=== PATIENT | female | born 1945 | race African-American/Black ===

== ENCOUNTER → 2017-03-23 | Outpatient (CLI) | payer MEDICARE ==
[~2017-03-23] MED LIST: HYDR25TA9 PO; LOSA50TA6 PO; METF500T4 PO; MULT-245 PO; NAPR220T70 PO
[2017-03-23 09:22] LABS: BASO % 1 % (0-3); EOS % 6 % (0-3); HEMATOCRIT 36.9 % (36.0-47.0); HEMOGLOBIN 12.2 g/dL (12.0-15.5); LYMPH # 1.1 x10^3/uL (1.0-4.8); LYMPH % 29 % (24-48); MEAN CORPUSCULAR HEMOGLOBIN 30 pg (25-35); MEAN CORPUSCULAR HGB CONC 33 g/dL (31-37); MEAN CORPUSCULAR VOLUME 90 fL (79-100); MONO % 10 % (0-9); NEUT % 55 % (31-73); PLATELET COUNT 186 x10^3/uL (140-400); RED BLOOD COUNT 4.11 x10^6/uL (3.50-5.40); RED CELL DISTRIBUTION WIDTH 14.8 % (11.5-14.5); WHITE BLOOD COUNT 3.8 x10^3/uL (4.0-11.0)
[2017-03-23 09:27] LABS: INR 1.1 (0.8-1.1); PROTHROMBIN TIME PATIENT 13.5 SEC (11.7-14.0)
[2017-03-23 09:30] LABS: ALBUMIN 3.1 g/dL (3.4-5.0); CALCIUM 9.9 mg/dL (8.5-10.1); GFR 66.1; POTASSIUM 4.6 mmol/L (3.5-5.1)
[2017-03-23 10:37] LABS: BILIRUBIN,URINE NEGATIVE (NEG); GLUCOSE,URINE NEGATIVE (NEG); NITRITE,URINE NEGATIVE (NEG); PH,URINE 6.5; PROTEIN,URINE NEGATIVE (NEG-TRACE)
[2017-03-23 11:11] LABS: BACTERIA,URINE MODERATE /HPF (0-FEW); RBC,URINE OCC /HPF (0-2); SQUAMOUS EPITHELIAL CELL,UR MANY /LPF
--- NOTE | 2017-03-23 13:17 | EKG ---
[facility] [address] [place] [address] Test Date: 2017-03-23 Test Time: 12:43:29 Pat Name: SHRUTI PUENTES Department: Room: Gender: F Machine Stapler: : 1945 Requested By: MELVI PORTER Order Number: [id number] Reading MD: Margarita Arroyo Measurements Intervals [place] Rate: 74 P: 36 CO: 162 QRS: -4 QRSD: 88 T: 44 QT: 348 QTc: 387 Interpretive Statements SINUS RHYTHM ATRIAL PREMATURE COMPLEX(ES) LEFTWARD AXIS QRS(T) CONTOUR ABNORMALITY CONSIDER ANTEROSEPTAL MYOCARDIAL DAMAGE ABNORMAL ECG RI6.01 No previous ECG available for comparison Electronically Signed On 03-26-2017 12:36:53 CDT by Margarita Arroyo
--- NOTE | 2017-03-23 14:25 | RAD ---
Chest, 2 views, 03/23/2017: History: Preop evaluation for knee surgery Comparison is made to a study from 10/25/2012. The heart is at the upper limits of normal in size. The pulmonary vascularity is normal. No pulmonary infiltrates are seen. There is no evidence of pleural fluid. Moderate multilevel degenerative changes are present in the spine. There are also moderate degenerative changes at both shoulders. IMPRESSION: No acute cardiopulmonary abnormality is detected.
== END | disposition home or self-care (01) ==
LOC: SURGPAT 12:55
PROVIDERS: ATTEND Orthopaedic Surgery
DX: Z01.818 Encounter for other preprocedural examination (principal); I10 Essential (primary) hypertension; M17.0 Bilateral primary osteoarthritis of knee
CPT/HCPCS: 36415; 71020; 80048; 81001; 82040; 83036; 85027; 85610; 85651; 85730; 87086; 87641; 93005

== ENCOUNTER → 2017-04-13 | Outpatient (CLI) | payer MEDICARE ==
[~2017-04-13] MED LIST changes: +CELE200C PO
--- NOTE | 2017-04-13 10:33 | CARD ---
APPROVED REPORT EXAM: Two-dimensional and M-mode echocardiogram with Doppler and color Doppler. Other Information Quality : Average Rhythm : NSR INDICATION Peripheral Edema Pre-Op 2D DIMENSIONS RVDd3.2 (2.9-3.5cm)Left Atrium(2D)3.7 (1.6-4.0cm) IVSd0.9 (0.7-1.1cm)Aortic Root(2D)2.5 (2.0-3.7cm) LVDd5.6 (3.9-5.9cm)LVOT Diameter2.3 (1.8-2.4cm) PWd0.9 (0.7-1.1cm)LVDs3.4 (2.5-4.0cm) FS (%) 34.4 %SV106.5 ml LVEF(%)64.3 (>50%) Aortic Valve AoV Peak Luis Manuel.158.9cm/sAoV VTI31.2cm AO Peak GR.10.1mmHgLVOT Peak Luis Manuel.101.5cm/s LVOT VTI 22.34cmAO Mean GR.6mmHg KATHRYN (VMAX)2.89ew6NXH (VTI)2.86cm2 Mitral Valve MV E Nqocpzav74.2cm/sMV DECEL GRGB713kh MV A Oxyhzhwo78.9cm/sMV E Mean Gr.2mmHg MV LRS81emJ/A Ratio0.6 MV A Iflnbnwu732rdZTW (PHT)2.44cm2 TDI E/Lateral E'8.3E/Medial E'7.0 Pulmonary Valve PV Peak Eiqwetbp246.2cm/sPV Peak Grad.6mmHg Tricuspid Valve TR P. Pwowppqu854hp/sRAP ULGYOQTE7kmDg TR Peak Gr.39prWiZFCT28ysAh LEFT VENTRICLE The left ventricle is normal size. There is normal left ventricular wall thickness. Left ventricle sy stolic function is normal. The Ejection Fraction is 60-65%. There is grossly normal LV segmental wall motion. Tissue Doppler imaging reveals mild left ventricular diastolic dysfunction. There is no vent ricular septal defect visualized. RIGHT VENTRICLE The right ventricle is normal size. The right ventricular systolic function is normal. ATRIA The left atrium size is normal. The right atrium size is normal. The interatrial septum is intact wit h no evidence for an atrial septal defect or patent foramen ovale as noted on 2-D or Doppler imaging. AORTIC VALVE The aortic valve is grossly normal. The aortic valve is trileaflet. Doppler and Color Flow revealed n o significant aortic regurgitation. There is no significant aortic valvular stenosis. MITRAL VALVE The mitral valve is normal in structure and function. There is no evidence of mitral valve prolapse. There is no mitral valve stenosis. Doppler and Color Flow revealed trace to mild mitral regurgitation . TRICUSPID VALVE The tricuspid valve is normal in structure and function. Doppler and Color Flow revealed trace to mil d tricuspid regurgitation. The PA pressure was estimated at 31 mmHg. There is no tricuspid valve sten osis. PULMONIC VALVE The pulmonic valve is not well visualized. Doppler and Color Flow revealed no pulmonic valvular regur gitation. There is no pulmonic valvular stenosis. GREAT VESSELS The aortic root is normal in size. The ascending aorta is normal in size. The IVC is normal in size a nd collapses >50% with inspiration. PERICARDIAL EFFUSION There is no evidence of significant pericardial effusion. Critical Notification Critical Value: No <Conclusion> Left ventricle systolic function is normal. The Ejection Fraction is 60-65%. There is grossly normal LV segmental wall motion.
== END | disposition home or self-care (01) ==
LOC: ECHO 08:55
PROVIDERS: ATTEND Internal Medicine Cardiovascular Disease
DX: Z01.818 Encounter for other preprocedural examination (principal); I08.1 Rheumatic disorders of both mitral and tricuspid valves; R60.9 Edema, unspecified
CPT/HCPCS: 93306

== ENCOUNTER 2017-04-14 11:13 | Inpatient (IN) | payer MEDICARE ==
--- NOTE | 2017-04-13 16:13 | PDOC1 ---
History and Physical Date of Admission Date of Admission DATE: 04/14/17 Identification/Chief Complaint Chief Complaint left knee osteoarthritis pain Problems: Source Source: Chart review History of Present Illness History of Present Illness Verito is a 71 year old female who has bilateral knee pain. She lives with her . Her dull knee pain started 3 years ago and has been worsening recently. She rates the pain as an 8/10. She has been using a cane in her left hand recently, as she states it helps her walk. She states that her left knee is more painful than her right knee. She has difficulties with activities of daily living. She has tried cortisone injections into the knee in 2016 without relief. She has been taking Aleve for symptoms without significant relief. Past Medical History Cardiovascular: HTN Endocrine: Diabetes Past Surgical History Past Surgical History rotator cuff repair - 2013 Past Surgical History: Total hip replacement (10/2012) Family History Family History: No Significant Social History Smoke: No ALCOHOL: none Drugs: None Current Medications Current Medications Current Medications Morphine Sulfate 5 mg/Ketorolac Tromethamine 30 mg/Ropivacaine 60 ml/ Epinephrine HCl 0.5 mg/Sodium Chloride 100 ml @ 100 mls/hr 1X PERIOP ONCE INT ART ; Start 04/14/17 at 06:00; Stop 04/14/17 at 06:59 Bacitracin 82936 unit/Sodium Chloride 1,000 ml @ 1,000 mls/hr 1X PERIOP ONCE IRR ; Start 04/14/17 at 06:00; Stop 04/14/17 at 06:59 Active Scripts Active Reported Multi Vitamin Daily (Multivitamin) 1 Each Tablet 1 Each PO DAILY Losartan Potassium 50 Mg Tablet 50 Mg PO DAILY Metformin Hcl 500 Mg Tablet 500 Mg PO BIDWMEALS Aleve (Naproxen Sodium) 220 Mg Tablet 440 Mg PO BID Hydrochlorothiazide Tablet (Hydrochlorothiazide) 25 Mg Tablet 25 Mg PO DAILY Allergies Allergies: Coded Allergies: Tetanus Vaccines and Toxoid (Verified Adverse Reaction, Intermediate, Rash , 03/23/17) AND SWELLING aspirin (Verified Adverse Reaction, Intermediate, 03/23/17) NOSEBLEEDS Physical Exam General: Alert, Oriented X3, Cooperative, No acute distress HEENT: Atraumatic, EOMI Lungs: Normal air movement Heart: RRR Abdomen: Soft Extremities: No clubbing, No cyanosis, Normal pulses, Other (LEFT KNEE: antalgic gait. There is valgus alignment. No masses. No effusion. Tenderness on the medial and lateral joint lines. Range of motion is 10-80 degrees. There is crepitus with range of motion, and pain at the extremes of motion. The knee is stable to varus and valgus stress without subluxation or laxity. Muscle strength is normal (5/5) for quadriceps and hamstrings, and muscle tone is normal. The skin is normal with no scars, rashes, lesions or ulcers. Light touch sensation is intact. Trace edema and no varicosities. Dorsalis pedis pulse is intact and capillary refill is normal RIGHT KNEE: antalgic gait. There is valgus alignment. No masses. No detectable effusion. Tenderness on the medial and lateral joint lines. Range of motion is 0-115 degrees. There is crepitus with range of motion, and pain at the extremes of motion. The knee is stable to varus and valgus stress without subluxation or laxity. Muscle strength is normal (5/5) for quadriceps and hamstrings, and muscle tone is normal. The skin is normal with no scars, rashes, lesions or ulcers. Light touch sensation is intact. Trace edema and no varicosities. Dorsalis pedis pulse is intact and capillary refill is normal. ) Skin: No rashes, No breakdown, No significant lesion Neuro: Normal speech, Sensation intact Psych/Mental Status: Mental status NL, Mood NL Images Images IMAGING REPORT 45 PA weightbearing view of both knees, lateral, and patella view of each knee. Clinical information: Chronic knee pain Comparison: none Findings Bones: No fracture or dislocation is present. Joints: Both knees show bone on bone changes laterally of each knee, most consistent with osteoarthritis. Large osteophytes are present in all three compartments. Both knees have valgus malalignment. Soft tissue: Normal. Impression: Severe osteoarthritis of both knees Dictated and Signed Using Voice Recognition Software Davidson Reaves MD VTE Prophylaxis Ordered VTE Prophylaxis Devices: Yes VTE Pharmacological Prophylaxi: Yes Assessment/Plan Assessment/Plan Bilateral knee osteoarthritis pain, left worse than right. The patient, Dr. Reaves, and her daughter discussed options for treatment. She is 71 years old, and her knee arthritis limits her activity. She otherwise has reasonable health, with type 2 diabetes and hypertension. She had a right total hip arthroplasty with Dr. Rock on 11/09/2012 which is still doing well. She is barely able to walk down has decreased range of motion and malalignment of the knee. She has tried nonoperative treatment. At age 71 I recommend consideration of total knee arthroplasty. She has some risks here because of her underlying diabetes, as well as her current poor mobility. There were be some risk she would need inpatient rehabilitation after total knee arthroplasty. Overall I think the benefits outweigh the risks and she would like to proceed with a left total knee arthroplasty. We can do a cortisone injection into the right knee intraoperatively for symptom relief as she recovers postoperatively. I did not take a long-leg films today due to her difficulties with mobility. I will have her take the preoperative rehabilitation class. She and her daughter agree with this plan. We discussed the potential risks of infection, neurovascular injury, bleeding, blood clots, need for revision surgery, or other potential surgical or anesthetic complications. We will request medical clearance from her primary care provider Delmy Brito. SYED FLOWERS Apr 13, 2017 16:13
[2017-04-14] VITALS (7 sets, daily range): BP systolic 110–126; BP diastolic 64–70
[~2017-04-14] VITALS: Ht 165.1 cm; Wt 123.4 kg
[~2017-04-14 11:13] MED LIST changes: +BACITRACIN 50,000 UNIT in IV NORMAL SALINE 1000ML BAG 1,000 ML IRR ONE; -CELE200C PO; +CELECOXIB 200 MG CAPSULE. PO PRN; +DEXAMETHASONE SOD PHOS 20 MG/5 ML VIAL. ONE; +HYDROcodone/APAP 7.5/325MG 1 TAB TABLET PO PRN; +HYDROmorphone 2 MG/ML VIAL IV PRN; +LIDOCAINE 1% 1 ML SYRINGE. ID PRN; +LIDOCAINE 2% PF Vial for OR 5 ML VIAL. ONE; +MEPERIDINE PF 25 MG/ML VIAL. IV PRN; +MIDAZOLAM HCL/PF 2 MG/2 ML VIAL. IV PRN; +MORPHINE SULFATE 4 MG/ML DISP.SYRIN. IV PRN; +MORPHINE SULFATE 5 MG, KETOROLAC TROMETHAMINE 30 MG, ROPIVacaine 0.5% PF 60 ML, EPINEPH... INT ART ONE; +ONDANSETRON PF 4 MG/2 ML VIAL. ONE; +PROCHLORPERAZINE 10 MG/2 ML VIAL. IV PRN; +PROPOFOL 20 ML IV ONE; +TRANEXAMIC ACID 1,000 MG in IV NS 50ML -- 1ST BAG INJ ONE; +TRANEXAMIC ACID 1,000 MG in IV NS 50ML -- 2ND BAG INJ ONE; +diphenhydrAMINE 50 MG/ML VIAL IV PRN; +fentaNYL PF VIAL 100 MCG/2 ML VIAL IV PRN; +fentaNYL PF VIAL 100 MCG/2 ML VIAL ONE
[2017-04-14] MEDS ORDERED: CELE200C PO (11:38)
[2017-04-14] MEDS: IV RINGERS,LACTATED 1000ML 1,000 ML IV SCH ×2 (11:59→12:07)
[2017-04-14] MEDS ORDERED: ceFAZolin 2GM PREMIX 2 GM/50 ML BAG IV ONE (12:00)
[2017-04-14] MEDS ORDERED: VANCOMYCIN 1 GM VIAL. ONE ×2 (12:39→13:18)
[2017-04-14] MEDS ORDERED: TOBRAMYCIN POWDER 1.2 GM VIAL. ONE ×2 (12:39→13:18)
[2017-04-14] MEDS ORDERED: MIDAZOLAM HCL/PF 2 MG/2 ML VIAL. ONE (13:04)
[2017-04-14] MEDS ORDERED: ROCURONIUM 50 MG/5 ML VIAL. ONE (13:04)
[2017-04-14] MEDS ORDERED: methylPREDNISolone ACETATE 80 MG/ML VIAL. ONE (13:11)
[2017-04-14] MEDS ORDERED: BUPIVACAINE MPF 0.25% 30 ML VIAL. ONE (13:11)
[2017-04-14] MEDS ORDERED: PHENYLEPHRINE 10 MG/ML VIAL. ONE (13:15)
[2017-04-14] MEDS ORDERED: ePHEDrine PF IN SALINE 50 MG/5 ML DISP.SYRIN IV ONE (13:33)
[2017-04-14] MEDS ORDERED: NEOSTIGMINE METHYLSULFATE 5 MG/5 ML SYRINGE. ONE (13:52)
[2017-04-14] MEDS ORDERED: GLYCOPYRROLATE 1 MG/5 ML VIAL. ONE (13:52)
[2017-04-14] MEDS ORDERED: DESFLURANE 61 TO 120 MINUTES IH ONE (14:32)
[2017-04-14] MEDS ORDERED: fentaNYL PF VIAL 100 MCG/2 ML VIAL ONE (15:10)
--- NOTE | 2017-04-14 15:22 | PDOC4 ---
Operative Note Operative Note Date of Procedure: April 14, 2017 Pre-Op Diagnosis: Osteoarthritis left knee and right knee Post-Op Diagnosis: Osteoarthritis left knee and right knee Procedure: left total knee arthroplasty and right knee cortisone injection Surgeon: Melvi Reaves MD Lead Ramp Service Man: Keyla Rodriguez PA-C Anesthesia: General EBL: 100 mL Specimens Obtained: left knee bone and soft tissue Complications: none Implant Company: [employer] Drains: Hemovac plus pain catheter Tourniquet time: 67 Minutes Tourniquet Pressure: 350 mm Hg Indications for Procedure: Arthritis pain unrelieved by nonoperative management. Findings: Severe osteoarthritis with bone on bone contact laterally Implants used: Size 5 left bicruciate stabilized Journey II BCS cobalt chrome femoral component, size 6 left Journey nonporous tibial baseplate, size 5 -6 9 mm left Journey II BCS XLPE articular insert, 41 mm oval Esperanza II resurfacing patellar component Procedure in Detail: The patient was identified in the preoperative holding area, and the correct left extremity was marked by me. The patient was taken to the operating room where the patient was anesthetized by the Department of Anesthesia. Preoperative antibiotics were given intravenously. Tranexamic acid 1 g was given intravenously for intraoperative hemostasis. A "time-out" procedure was performed. The left knee was prepared for injection with chlorhexidine, and then the left knee was injected with 80 mg of DepoMedrol and 1 mL of 0.25% bupivacaine, using sterile technique by my press assistant. A Band-Aid was placed. The patient was positioned supine on the operative table with a tourniquet on the upper left thigh. The left lower extremity was thoroughly prepped and draped in sterile fashion. An impervious stockinet and adhesive drape were used such that the skin was entirely covered. An Almanzar leg snyder was used. The operating team wore personal exhaust-ventilated hoods. The tourniquet was inflated to 350 mm Hg. A midline skin incision was made with a scalpel using the patella and tibial tubercle as landmarks. Electrocautery was used for hemostasis. My press assistant used rake retractors. A medial parapatellar arthrotomy incision was used with extension into the distal quadriceps tendon. The patella was retracted laterally and Hohmann retractors were now used by my press assistant. Excess synovium, the menisci, and the cruciate ligaments were resected sharply. The patella was assessed and excess synovium and osteophytes around the patellar articulation were removed. The patella was measured with a caliper, cut freehand with a saw using caliper measurements, sized, and then drilled for an oval three-pegged patella component. Periarticular injection was used in the suprapatellar pouch and distal quadriceps muscle. Whitesides's line was assessed on the femur. An intra-medullary 5 degree cutting guide was pinned to the femur, and a distal femoral cut was made with an oscillating saw. An additional 4 mm resection was used due to the deep femoral sulcus, and deficient femoral condyle.My press assistant held Hohmann retractors and an [place] retractor to protect the medial and lateral collateral ligaments, the patellar tendon, the skin and the other soft tissues. An anterior referencing guide was applied with external rotation of 4 to match Whitesides line. A 5-in-1 Journey II cutting guide was then applied and pinned to the femur. The posterior, anterior, and all chamfer cuts were made with the oscillating saw. An extramedullary guide was pinned to the tibia and rotational alignment and the planned resection thickness assessed. An external alignment marya was used to verify the planned cut in the varus-valgus plane and regarding posterior slope referencing the tibial tubercle, the tibial shaft, the ankle joint, and the second metatarsal. The upper tibia was cut made with an oscillating saw. My press assistant held Hohmann retractors and a posterior cruciate ligament retractor to protect the medial and lateral collateral ligaments, the patellar tendon, the skin, the peroneal nerve and the other soft tissues. The upper tibia was sized with a trial baseplate. The posterior compartment was cleared of osteophytes and loose bodies, and posterior capsule released. Elisha-articular injection was used in the posterior compartment. The box cut for a posterior stabilized component was made. A preliminary reduction was performed with a trial femur, trial tibial baseplate and trial polyethylene. Soft-tissue balancing was now performed, and extension and rotation of the alignments was checked using a guide marya in the tibial trial and a guide pin in the femur. A lateral tibiofemoral release was performed with a piecrust technique using an 11 blade scalpel in the lateral soft tissues including the IT band. The stability was assessed using different thicknesses of tibial articular surface to find satisfactory stability and good range of motion. The rotation of the tibial component was marked on the upper tibia. Final trial reduction was now performed verifying patella tracking and tibiofemoral stability and alignment. The tibia preparation was completed with a drill, saw, and fin punch at the previously noted rotation. The final implants were verified and opened. Outer gloves were changed by the operating team. The bone cuts were washed thoroughly with the Lumenergi InterPulse device and dried. Two packages of Rally HV bone cement were mixed in powdered form with 1 gm of Vancomycin and 1.2 g tobramycin, then vacuum-mixed with the monomer, and placed into a cement gun. The cut surfaces of the bone were thoroughly dried with Elise-tip suction and with laparotomy sponges for cement interdigitation. The final components were cemented into place. The knee was kept at full extension while the cement hardened, and excess cement was removed. Tranexamic acid 1 g was redosed intravenously for additional intraoperative hemostasis. A final periarticular injection was used for pain relief. The tourniquet was released, and electrocautery was used for hemostasis. A final check of [id number] and stability was made, and the polyethylene implant final size was chosen. The polyethylene implant was secured to the tibial baseplate, and the knee was reduced a final time. Thorough irrigation was used. Hemovac and pain catheter were used.The arthrotomy was closed with interrupted [id number] #1 PDS suture. The arthrotomy incision was then run with #1 STRATAFIX Symmetric PDS Plus Knotless suture. The subcutaneous tissues were closed with #2-0 Vicryl by my press assistant. The skin was reapproximated with STRATAFIX Spiral MONOCRYL Plus Knotless #3-0 suture by my press assistant. The skin incision was then covered and reinforced with Dermabond Prineo mesh skin closure dressing. A bulky sterile gauze dressing was applied. Needle and sponge counts were correct. MELVI REAVES MD Apr 14, 2017 15:22
[2017-04-14] MEDS ORDERED: diphenhydrAMINE 50 MG/ML VIAL IV PRN (15:45)
[2017-04-14] MEDS ORDERED: traMADol 50 MG TABLET PO PRN ×2 (15:45)
[2017-04-14] MEDS ORDERED: ZOLPIDEM 5 MG TABLET. PO PRN (15:45)
[2017-04-14] MEDS ORDERED: fentaNYL PF VIAL 100 MCG/2 ML VIAL IV PRN ×2 (15:45)
[2017-04-14] MEDS ORDERED: PROCHLORPERAZINE 5 MG TABLET. PO PRN (15:45)
[2017-04-14] MEDS ORDERED: METOCLOPRAMIDE HCL 10 MG/2 ML VIAL. IV PRN (15:45)
[2017-04-14] MEDS ORDERED: 0.9 % SODIUM CHLORIDE 10 ML DISP.SYRIN. IV PRN (15:45)
[2017-04-14] MEDS ORDERED: PROCHLORPERAZINE 10 MG/2 ML VIAL. IV PRN (15:45)
[2017-04-14] MEDS ORDERED: MORPHINE SULFATE 10 MG/ML VIAL. IV PRN (15:45)
[2017-04-14] MEDS ORDERED: oxyCODONE/APAP 7.5/325 1 TAB TABLET PO PRN (15:45)
[2017-04-14] MEDS ORDERED: ACETAMINOPHEN 325 MG TABLET. PO PRN (15:45)
[2017-04-14] MEDS ORDERED: MORPHINE SULFATE 4 MG/ML DISP.SYRIN. IV PRN ×2 (15:45)
[2017-04-14] MEDS ORDERED: MORPHINE SULFATE 2 MG/ML DISP.SYRIN. IV PRN (15:45)
[2017-04-14] MEDS ORDERED: CALCIUM CARBONATE 500 MG TAB.CHEW PO PRN (15:45)
[2017-04-14] MEDS ORDERED: DEXTROSE 50% 25 GM / 50ML DISP.SYRIN. IV PRN (15:45)
--- NOTE | 2017-04-14 16:08 | RAD ---
Indication: Postop knee. Time of exam 1552 hours. 2 views demonstrate postop changes of total knee arthroplasty. Prosthetic elements are in good position. No fracture or loosening is seen. Overlying surgical drain noted. Impression: Satisfactory postop appearance from knee arthroplasty.
[2017-04-14] MEDS ORDERED: WARFARIN 7.5 MG TABLET. PO ONE (18:00)
[2017-04-14] MEDS: FERROUS SULFATE 325 MG TABLET. PO SCH (18:56)
[2017-04-14] MEDS: metFORMIN 500 MG TABLET PO SCH (18:56)
[2017-04-14] MEDS: CELECOXIB 200 MG CAPSULE. PO SCH (21:19)
[2017-04-14] MEDS: IV DEXTROSE 5 %-0.45 % NACL 1,000 ML IV SCH (22:31)
[2017-04-15 03:40] VITALS: BP 109/61
[2017-04-15] MEDS: IV DEXTROSE 5 %-0.45 % NACL 1,000 ML IV SCH ×3 (04:00→21:01)
[2017-04-15 05:17] LABS: INR 1.2 (0.8-1.1); PROTHROMBIN TIME PATIENT 14.8 SEC (11.7-14.0)
[2017-04-15] MEDS: oxyCODONE/APAP 5/325 1 TAB TABLET PO PRN (05:51)
[2017-04-15] MEDS ORDERED: MAGNESIUM HYDROXIDE 2,400 MG/30 ML ORAL.SUSP. PO PRN (06:00)
[2017-04-15 07:11] VITALS: BP 113/57
[2017-04-15] MEDS: FERROUS SULFATE 325 MG TABLET. PO SCH ×2 (08:25→17:06)
[2017-04-15] MEDS: metFORMIN 500 MG TABLET PO SCH ×2 (08:26→17:06)
[2017-04-15] MEDS: CELECOXIB 200 MG CAPSULE. PO SCH ×2 (08:26→21:10)
[2017-04-15] MEDS: hydroCHLOROthiazide 25 MG TABLET PO SCH ×2 (08:26→09:00)
[2017-04-15] MEDS: SENNOSIDES/DOCUSATE 8.6/50MG TABLET. PO SCH (08:26)
[2017-04-15] MEDS: MULTIVITAMIN with MINERAL TABLET. PO SCH (08:28)
[2017-04-15 08:30] VITALS: BP 93/56
[2017-04-15] MEDS: LOSARTAN POTASSIUM 50 MG TABLET. PO SCH (09:00)
[2017-04-15] MEDS: HYDROcodone/APAP 7.5/325MG 1 TAB TABLET PO PRN ×4 (09:27→21:11)
--- NOTE | 2017-04-15 10:17 | PDOC ---
PROGRESS NOTES Subjective Subjective No complaints Objective Vital Signs Vital Signs Date Time Temp Pulse Resp B/P (MAP) Pulse Ox O2 Delivery O2 Flow Rate FiO2 04/15/17 09:27 16 Room Air 04/15/17 08:30 79 93/56 (68) 04/15/17 07:11 98.2 93 98.2 04/14/17 23:10 2.0 Physical Exam Dressing dry. Pain catheter and Hemovac in place. Good dorsiflexion and plantarflexion of the foot with no evidence of neurovascular injury or DVT. Calves are soft and non-tender. Negative Homans. Peripheral pulses and light touch sensation intact. Labs Laboratory Tests Test 04/14/17 11:15 04/14/17 11:51 04/14/17 16:51 04/14/17 21:14 Activated Partial Thromboplast Time 54 SEC (24-38) Glucose (Fingerstick) 84 mg/dL (70-99) 144 mg/dL (70-99) 191 mg/dL (70-99) Test 04/15/17 03:35 04/15/17 03:55 04/15/17 05:43 Hemoglobin 10.6 g/dL (12.0-15.5) Prothrombin Time 14.8 SEC (11.7-14.0) Prothromb Time International Ratio 1.2 (0.8-1.1) Glucose (Fingerstick) 156 mg/dL (70-99) Laboratory Tests Test 04/14/17 11:15 04/14/17 11:51 04/14/17 16:51 04/14/17 21:14 Activated Partial Thromboplast Time 54 SEC (24-38) Glucose (Fingerstick) 84 mg/dL (70-99) 144 mg/dL (70-99) 191 mg/dL (70-99) Test 04/15/17 03:35 04/15/17 03:55 04/15/17 05:43 Hemoglobin 10.6 g/dL (12.0-15.5) Prothrombin Time 14.8 SEC (11.7-14.0) Prothromb Time International Ratio 1.2 (0.8-1.1) Glucose (Fingerstick) 156 mg/dL (70-99) Imaging Postoperative x-rays reviewed by me, showing satisfactory total knee replacement , with no apparent complications. Assessment Assessment POD #1 TKA Problems: Plan Plan of Care Continue POC including DVT prophylaxis and physical therapy MELVI PORTER MD Apr 15, 2017 10:17
[2017-04-15 12:11] VITALS: BP 103/63
[2017-04-15] MEDS ORDERED: BISACODYL 10 MG SUPP.RECT. PR PRN (16:00)
[2017-04-15] MEDS ORDERED: WARFARIN 5 MG TABLET. PO ONE (16:00)
[2017-04-15 18:02] VITALS: BP 110/69
[2017-04-16 06:37] VITALS: BP 147/76
[2017-04-16] MEDS: oxyCODONE/APAP 5/325 1 TAB TABLET PO PRN (06:39)
[2017-04-16] MEDS: metFORMIN 500 MG TABLET PO SCH ×2 (07:59→17:02)
[2017-04-16] MEDS: hydroCHLOROthiazide 25 MG TABLET PO SCH (07:59)
[2017-04-16] MEDS: MULTIVITAMIN with MINERAL TABLET. PO SCH (07:59)
[2017-04-16] MEDS: FERROUS SULFATE 325 MG TABLET. PO SCH ×2 (07:59→17:02)
[2017-04-16] MEDS: SENNOSIDES/DOCUSATE 8.6/50MG TABLET. PO SCH (08:00)
[2017-04-16] MEDS: CELECOXIB 200 MG CAPSULE. PO SCH ×2 (08:00→20:58)
[2017-04-16 08:01] VITALS: BP 147/80
[2017-04-16] MEDS: LOSARTAN POTASSIUM 50 MG TABLET. PO SCH (08:01)
[2017-04-16] MEDS: HYDROcodone/APAP 7.5/325MG 1 TAB TABLET PO PRN ×2 (08:38→12:41)
[2017-04-16 09:11] LABS: INR 1.2 (0.8-1.1); PROTHROMBIN TIME PATIENT 14.3 SEC (11.7-14.0)
[2017-04-16 09:51] LABS: HEMATOCRIT 29.3 % (36.0-47.0); HEMOGLOBIN 9.6 g/dL (12.0-15.5)
--- NOTE | 2017-04-16 12:40 | PDOC ---
PROGRESS NOTES Subjective Subjective Doing well. Only reports mild pain increase from yesterday. Objective Vital Signs Vital Signs Date Time Temp Pulse Resp B/P (MAP) Pulse Ox O2 Delivery O2 Flow Rate FiO2 04/16/17 09:30 20 04/16/17 08:01 69 147/80 (102) Room Air 04/16/17 06:37 98.8 95 98.8 04/14/17 23:10 2.0 Physical Exam Expected swelling. Pain catheter and drain have been removed. Incision with spotty drainage only from drain sites. Prineo intact and dry. Calf soft and nontender. Negative Homans sign. Good AROM ankle. Peripheral pulses and light touch sensation intact. Labs Laboratory Tests Test 04/14/17 16:51 04/14/17 21:14 04/15/17 03:35 04/15/17 03:55 Glucose (Fingerstick) 144 mg/dL (70-99) 191 mg/dL (70-99) Hemoglobin 10.6 g/dL (12.0-15.5) Prothrombin Time 14.8 SEC (11.7-14.0) Prothromb Time International Ratio 1.2 (0.8-1.1) Test 04/15/17 05:43 04/15/17 11:29 04/15/17 16:34 04/15/17 21:06 Glucose (Fingerstick) 156 mg/dL (70-99) 106 mg/dL (70-99) 102 mg/dL (70-99) 100 mg/dL (70-99) Test 04/16/17 07:50 Hemoglobin 9.6 g/dL (12.0-15.5) Hematocrit 29.3 % (36.0-47.0) Mean Corpuscular Hemoglobin Concent 33 g/dL (31-37) Prothrombin Time 14.3 SEC (11.7-14.0) Prothromb Time International Ratio 1.2 (0.8-1.1) Laboratory Tests Test 04/15/17 16:34 04/15/17 21:06 04/16/17 07:50 Glucose (Fingerstick) 102 mg/dL (70-99) 100 mg/dL (70-99) Hemoglobin 9.6 g/dL (12.0-15.5) Hematocrit 29.3 % (36.0-47.0) Mean Corpuscular Hemoglobin Concent 33 g/dL (31-37) Prothrombin Time 14.3 SEC (11.7-14.0) Prothromb Time International Ratio 1.2 (0.8-1.1) Assessment Assessment POD 2 TKA Problems: Plan Plan of Care Continue DVT prophylaxis and physical therapy. Planned discharge tomorrow to home with home health. Office F/U in 10-14 days. SYED FLOWERS Apr 16, 2017 12:39
[2017-04-16] MEDS ORDERED: WARFARIN 6 MG TABLET. PO ONE (16:00)
[2017-04-16] MEDS: HYDROcodone/APAP 10/325 1 TAB TABLET PO PRN (17:04)
[2017-04-16 18:00] VITALS: BP 106/70
[2017-04-16] MEDS: IV DEXTROSE 5 %-0.45 % NACL 1,000 ML IV SCH (18:45)
[2017-04-17] MEDS: HYDROcodone/APAP 10/325 1 TAB TABLET PO PRN (04:59)
[2017-04-17 06:21] LABS: INR 1.3 (0.8-1.1); PROTHROMBIN TIME PATIENT 15.7 SEC (11.7-14.0)
[2017-04-17 06:55] VITALS: BP 102/71
[2017-04-17 08:08] LABS: HEMATOCRIT 29.9 % (36.0-47.0); HEMOGLOBIN 9.6 g/dL (12.0-15.5)
[2017-04-17] MEDS: oxyCODONE/APAP 5/325 1 TAB TABLET PO PRN ×2 (08:11→12:27)
[2017-04-17] MEDS: MULTIVITAMIN with MINERAL TABLET. PO SCH (08:11)
[2017-04-17] MEDS: SENNOSIDES/DOCUSATE 8.6/50MG TABLET. PO SCH (08:11)
[2017-04-17] MEDS: metFORMIN 500 MG TABLET PO SCH (08:11)
[2017-04-17] MEDS: FERROUS SULFATE 325 MG TABLET. PO SCH (08:12)
[2017-04-17] MEDS: CELECOXIB 200 MG CAPSULE. PO SCH (08:12)
[2017-04-17] MEDS: hydroCHLOROthiazide 25 MG TABLET PO SCH (08:16)
[2017-04-17] MEDS: LOSARTAN POTASSIUM 50 MG TABLET. PO SCH (08:16)
[2017-04-17 12:55] VITALS: BP 132/80
[2017-04-17] MEDS ORDERED: WARFARIN 7.5 MG TABLET. PO ONE (13:00)
--- NOTE | 2017-04-17 13:25 | PDOC ---
PROGRESS NOTES Subjective Subjective Doing well. Planning for discharge later today after PT. Objective Vital Signs Vital Signs Date Time Temp Pulse Resp B/P (MAP) Pulse Ox O2 Delivery O2 Flow Rate FiO2 04/17/17 12:27 Room Air 04/17/17 08:16 87 130/79 04/17/17 06:55 98.4 18 94 98.4 04/14/17 23:10 2.0 Physical Exam Expected swelling. Prineo dressing intact and dry. Calf soft and nontender. Negative Homans. Good AROM ankle. Peripheral pulses and light touch sensation intact. Labs Laboratory Tests Test 04/15/17 16:34 04/15/17 21:06 04/16/17 06:02 04/16/17 07:50 Glucose (Fingerstick) 102 mg/dL (70-99) 100 mg/dL (70-99) 84 mg/dL (70-99) Hemoglobin 9.6 g/dL (12.0-15.5) Hematocrit 29.3 % (36.0-47.0) Mean Corpuscular Hemoglobin Concent 33 g/dL (31-37) Prothrombin Time 14.3 SEC (11.7-14.0) Prothromb Time International Ratio 1.2 (0.8-1.1) Test 04/16/17 11:06 04/16/17 16:38 04/16/17 21:06 04/16/17 21:49 Glucose (Fingerstick) 69 mg/dL (70-99) 90 mg/dL (70-99) 69 mg/dL (70-99) 138 mg/dL (70-99) Test 04/17/17 05:54 04/17/17 06:41 04/17/17 11:28 Hemoglobin 9.6 g/dL (12.0-15.5) Hematocrit 29.9 % (36.0-47.0) Mean Corpuscular Hemoglobin Concent 32 g/dL (31-37) Prothrombin Time 15.7 SEC (11.7-14.0) Prothromb Time International Ratio 1.3 (0.8-1.1) Glucose (Fingerstick) 96 mg/dL (70-99) 79 mg/dL (70-99) Laboratory Tests Test 04/16/17 16:38 04/16/17 21:06 04/16/17 21:49 04/17/17 05:54 Glucose (Fingerstick) 90 mg/dL (70-99) 69 mg/dL (70-99) 138 mg/dL (70-99) Hemoglobin 9.6 g/dL (12.0-15.5) Hematocrit 29.9 % (36.0-47.0) Mean Corpuscular Hemoglobin Concent 32 g/dL (31-37) Prothrombin Time 15.7 SEC (11.7-14.0) Prothromb Time International Ratio 1.3 (0.8-1.1) Test 04/17/17 06:41 04/17/17 11:28 Glucose (Fingerstick) 96 mg/dL (70-99) 79 mg/dL (70-99) Assessment Assessment POD 3 TKA Problems: Plan Plan of Care Discharge later today, to home with home health. Continue DVT prophylaxis and physical therapy. F/U 10-14 days. SYED FLOWERS Apr 17, 2017 13:25
--- NOTE | 2017-04-17 13:27 | PDOC3 ---
Discharge Summary Visit Information Date of Admission: Apr 14, 2017 Date of Discharge: Apr 17, 2017 Admitting Diagnosis: left knee osteoarthritis pain Brief Hospital Course Allergies Allergies Coded Allergies Type Severity Reaction Last Updated Verified Tetanus Vaccines and Toxoid Adverse Reaction Intermediate Rash 04/14/17 Yes aspirin Adverse Reaction Intermediate 04/14/17 Yes Vital Signs Vital Signs Date Time Temp Pulse Resp B/P (MAP) Pulse Ox O2 Delivery O2 Flow Rate FiO2 04/17/17 12:27 Room Air 04/17/17 08:16 87 130/79 04/17/17 06:55 98.4 18 94 98.4 Lab Results Laboratory Tests Test 04/15/17 16:34 04/15/17 21:06 04/16/17 06:02 04/16/17 07:50 Glucose (Fingerstick) 102 mg/dL (70-99) 100 mg/dL (70-99) 84 mg/dL (70-99) Hemoglobin 9.6 g/dL (12.0-15.5) Hematocrit 29.3 % (36.0-47.0) Mean Corpuscular Hemoglobin Concent 33 g/dL (31-37) Prothrombin Time 14.3 SEC (11.7-14.0) Prothromb Time International Ratio 1.2 (0.8-1.1) Test 04/16/17 11:06 04/16/17 16:38 04/16/17 21:06 04/16/17 21:49 Glucose (Fingerstick) 69 mg/dL (70-99) 90 mg/dL (70-99) 69 mg/dL (70-99) 138 mg/dL (70-99) Test 04/17/17 05:54 04/17/17 06:41 04/17/17 11:28 Hemoglobin 9.6 g/dL (12.0-15.5) Hematocrit 29.9 % (36.0-47.0) Mean Corpuscular Hemoglobin Concent 32 g/dL (31-37) Prothrombin Time 15.7 SEC (11.7-14.0) Prothromb Time International Ratio 1.3 (0.8-1.1) Glucose (Fingerstick) 96 mg/dL (70-99) 79 mg/dL (70-99) Laboratory Tests Test 04/16/17 16:38 04/16/17 21:06 04/16/17 21:49 04/17/17 05:54 Glucose (Fingerstick) 90 mg/dL (70-99) 69 mg/dL (70-99) 138 mg/dL (70-99) Hemoglobin 9.6 g/dL (12.0-15.5) Hematocrit 29.9 % (36.0-47.0) Mean Corpuscular Hemoglobin Concent 32 g/dL (31-37) Prothrombin Time 15.7 SEC (11.7-14.0) Prothromb Time International Ratio 1.3 (0.8-1.1) Test 04/17/17 06:41 04/17/17 11:28 Glucose (Fingerstick) 96 mg/dL (70-99) 79 mg/dL (70-99) Brief Hospital Course 71 year old who presented with left knee osteoarthritis, for elective total knee arthroplasty. The patient underwent left total knee arthroplasty under general anesthesia the day of admission. Perioperative antibiotics and DVT prophylaxis were used. Postoperatively physical therapy and case management were consulted. The patient progressed and is stable for discharge. Discharge Information Condition at Discharge: Stable Follow Up: Weeks (2) Disposition/Orders: D/C to Home w/ HH Scheduled Hydrochlorothiazide (Hydrochlorothiazide Tablet ), 25 MG PO DAILY, (Reported) Losartan Potassium (Losartan Potassium), 50 MG PO DAILY, (Reported) Metformin Hcl (Metformin Hcl), 500 MG PO BIDWMEALS, (Reported) Multivitamin (Multi Vitamin Daily), 1 EACH PO DAILY, (Reported) Naproxen Sodium (Aleve), 440 MG PO BID, (Reported) Scheduled PRN Celecoxib (Celebrex), 200 MG PO 1X PREOP PRN for PAIN, (Reported) Patient Instructions Patient Instructions Patient Instructions Continue to WBAT with walker. Keep dressing dry and intact. F/U with [facility] in 10-14 days. Call for appointment. Physical therapy for TKA Continue DVT prophylaxis. Coumadin clinic for dosing. SYED FLOWERS Apr 17, 2017 13:27
[2017-04-17] MEDS ORDERED: FERR-26 PO (14:02)
[2017-04-17] MEDS ORDERED: OXYC-323 PO (14:04)
[2017-04-18] MEDS ORDERED: WARFARIN 6 MG TABLET. PO SCH (16:00)
== END 2017-04-17 15:30 | disposition home health service (06) | DRG 470 ==
LOC: OPSVCIP 11:13 → 4 SOUTHEST 16:56
PROVIDERS: ADMIT Orthopaedic Surgery; ATTEND Orthopaedic Surgery
PROC: 3E0U33Z Introduction of Anti-inflammatory into Joints, Percutaneous Approach (ICD-10-PCS; 2017-04-14)
PROC: 0SRD0J9 Replacement of Left Knee Joint with Synthetic Substitute, Cemented, Open Approach (ICD-10-PCS; principal; 2017-04-14 12:45)
DX: M17.0 Bilateral primary osteoarthritis of knee (principal); Z96.641 Presence of right artificial hip joint; I10 Essential (primary) hypertension; E11.9 Type 2 diabetes mellitus without complications; Z88.6 Allergy status to analgesic agent; Z88.7 Allergy status to serum and vaccine; Z79.1 Long term (current) use of non-steroidal anti-inflammatories (NSAID); Z79.899 Other long term (current) drug therapy
CPT/HCPCS: 36415; 73560; 82962; 85014; 85018; 85610; 85730; 86850; 86900; 86901; 88305; 88311; 93306; J0171; J0690; J1040; J1100; J1885; J2001; J2250; J2270; J2405; J2704; J2710; J2795; J3010; J3260; J3370; J3490; J7030; J7120; 97116; 97150; 97535; C1769

== ENCOUNTER → 2018-01-04 | Outpatient (CLI) | payer MEDICARE ==
[2018-01-04 11:18] LABS: ADD MAN DIFF? NO
[2018-01-04 11:21] LABS: BASO % 1 % (0-3); EOS # 0.2 x10^3/uL (0.0-0.7); EOS % 5 % (0-3); HEMATOCRIT 34.9 % (36.0-47.0); HEMOGLOBIN 11.2 g/dL (12.0-15.5); LYMPH % 25 % (24-48); MEAN CORPUSCULAR HEMOGLOBIN 29 pg (25-35); MEAN CORPUSCULAR HGB CONC 32 g/dL (31-37); MEAN CORPUSCULAR VOLUME 90 fL (79-100); MONO # 0.4 x10^3/uL (0.0-1.1); MONO % 10 % (0-9); NEUT # 2.4 x10^3uL (1.8-7.7); NEUT % 59 % (31-73); PLATELET COUNT 184 x10^3/uL (140-400); RED BLOOD COUNT 3.86 x10^6/uL (3.50-5.40); RED CELL DISTRIBUTION WIDTH 15.4 % (11.5-14.5)
[2018-01-04 11:31] LABS: INR 1.1 (0.8-1.1); PROTHROMBIN TIME PATIENT 13.4 SEC (11.7-14.0)
[2018-01-04 11:32] LABS: PARTIAL THROMBOPLASTIN TIME 57 SEC (24-38)
[2018-01-04 11:38] LABS: ANION GAP 6 (6-14); BLOOD UREA NITROGEN 21 mg/dL (7-20); CARBON DIOXIDE 32 mmol/L (21-32); CHLORIDE 109 mmol/L (98-107); GFR 65.9; GLUCOSE 86 mg/dL (70-99); POTASSIUM 4.2 mmol/L (3.5-5.1); SODIUM 147 mmol/L (136-145)
[2018-01-04 11:50] LABS: BILIRUBIN,URINE NEGATIVE (NEG); CLARITY,URINE CLEAR; COLOR,URINE YELLOW; GLUCOSE,URINE NEGATIVE (NEG); NITRITE,URINE NEGATIVE (NEG); PH,URINE 6.5; PROTEIN,URINE NEGATIVE (NEG-TRACE)
[2018-01-04 11:54] LABS: BACTERIA,URINE FEW /HPF (0-FEW); RBC,URINE 0 /HPF (0-2); SQUAMOUS EPITHELIAL CELL,UR MOD /LPF; WBC,URINE RARE /HPF (0-4)
[2018-01-04 13:09] LABS: SEDIMENTATION RATE 58 (0-25)
[2018-01-04 19:15] LABS: MRSA BY PCR Positive (Negative)
[2018-01-05 00:10] LABS: HEMOGLOBIN A1C 5.5 % (4.8-5.6)
== END | disposition home or self-care (01) ==
LOC: SURGPAT 10:16
DX: Z01.818 Encounter for other preprocedural examination (principal); M17.0 Bilateral primary osteoarthritis of knee; I10 Essential (primary) hypertension; E11.9 Type 2 diabetes mellitus without complications; R79.89 Other specified abnormal findings of blood chemistry; Z96.641 Presence of right artificial hip joint; Z79.1 Long term (current) use of non-steroidal anti-inflammatories (NSAID); Z88.7 Allergy status to serum and vaccine; Z88.6 Allergy status to analgesic agent; Z79.01 Long term (current) use of anticoagulants; Z79.899 Other long term (current) drug therapy
CPT/HCPCS: 36415; 80048; 81001; 82040; 82306; 83036; 85025; 85610; 85651; 85730; 87086; 87641

== ENCOUNTER → 2018-02-03 | Outpatient (CLI) | payer MEDICARE, OTHER ==
[2018-02-03 09:37] LABS: INR 1.1 (0.8-1.1); PROTHROMBIN TIME PATIENT 13.7 SEC (11.7-14.0)
[2018-02-03 09:38] LABS: PARTIAL THROMBOPLASTIN TIME 69 SEC (24-38)
== END | disposition home or self-care (01) ==
LOC: LAB 08:38
DX: R79.1 Abnormal coagulation profile (principal)
CPT/HCPCS: 36415; 85610; 85730

== ENCOUNTER 2018-02-09 09:48 | Inpatient (IN) | payer MEDICARE ==
[2018-02-02] MEDS: MORPHINE SULFATE 5 MG, KETOROLAC 30 MG, ROPIVacaine 0.5% PF 60 ML, EPINEPHrine 0.5 MG i... INT ART (06:00)
[2018-02-09] MEDS: KETOROLAC 30 MG, BUPIVACAINE MPF 0.25% 20 ML, EPINEPHrine 0.5 MG in TOTAL VOLUME SYRING... INT ART (02:30)
[~2018-02-09 09:48] MED LIST changes: -BACITRACIN 50,000 UNIT in IV NORMAL SALINE 1000ML BAG 1,000 ML IRR ONE; -CELECOXIB 200 MG CAPSULE. PO PRN; -DEXAMETHASONE SOD PHOS 20 MG/5 ML VIAL. ONE; -HYDR25TA9 PO; -HYDROcodone/APAP 7.5/325MG 1 TAB TABLET PO PRN; -HYDROmorphone 2 MG/ML VIAL IV PRN; +IV RINGERS,LACTATED 1000ML 1,000 ML IV; -LIDOCAINE 1% 1 ML SYRINGE. ID PRN; +LIDOCAINE 1% PF 2 ML VIAL. ID; -LIDOCAINE 2% PF Vial for OR 5 ML VIAL. ONE; -LOSA50TA6 PO; -MEPERIDINE PF 25 MG/ML VIAL. IV PRN; -METF500T4 PO; -MIDAZOLAM HCL/PF 2 MG/2 ML VIAL. IV PRN; +MORPHINE SULFATE 4 MG/ML DISP.SYRIN. IV; -MORPHINE SULFATE 4 MG/ML DISP.SYRIN. IV PRN; -MORPHINE SULFATE 5 MG, KETOROLAC TROMETHAMINE 30 MG, ROPIVacaine 0.5% PF 60 ML, EPINEPH... INT ART ONE; -MULT-245 PO; -NAPR220T70 PO; +ONDANSETRON PF 4 MG/2 ML VIAL. IV; -ONDANSETRON PF 4 MG/2 ML VIAL. ONE; +PROCHLORPERAZINE 10 MG/2 ML VIAL. IV; -PROCHLORPERAZINE 10 MG/2 ML VIAL. IV PRN; -PROPOFOL 20 ML IV ONE; -TRANEXAMIC ACID 1,000 MG in IV NS 50ML -- 1ST BAG INJ ONE; -TRANEXAMIC ACID 1,000 MG in IV NS 50ML -- 2ND BAG INJ ONE; -diphenhydrAMINE 50 MG/ML VIAL IV PRN; +fentaNYL PF VIAL 100 MCG/2 ML VIAL IV; -fentaNYL PF VIAL 100 MCG/2 ML VIAL IV PRN; -fentaNYL PF VIAL 100 MCG/2 ML VIAL ONE
[2018-02-09 10:41] LABS: POC GLUCOSE 77 mg/dL (70-99)
[2018-02-09] MEDS: IV RINGERS,LACTATED 1000ML 1,000 ML IV (11:00)
[2018-02-09] MEDS ORDERED: HYDROcodone/APAP 7.5/325MG 1 TAB TABLET (11:03)
[2018-02-09] MEDS: HYDROcodone/APAP 7.5/325MG 1 TAB TABLET PO (11:11)
[2018-02-09 11:42] LABS: INR 1.1 (0.8-1.1); PROTHROMBIN TIME PATIENT 13.6 SEC (11.7-14.0)
[2018-02-09 11:43] LABS: PARTIAL THROMBOPLASTIN TIME 68 SEC (24-38)
[2018-02-09] MEDS ORDERED: PROPOFOL 20 ML IV (11:49)
[2018-02-09] MEDS ORDERED: ONDANSETRON PF 4 MG/2 ML VIAL. (11:49)
[2018-02-09] MEDS ORDERED: fentaNYL PF VIAL 100 MCG/2 ML VIAL ×2 (11:49→16:28)
[2018-02-09] MEDS ORDERED: DEXAMETHASONE SOD PHOS 20 MG/5 ML VIAL. (11:49)
[2018-02-09] MEDS ORDERED: LIDOCAINE 2% PF Vial for OR 5 ML VIAL. (11:49)
[2018-02-09] MEDS: VANCOMYCIN 1GM IVPB FOR OMNI 250 ML IV ×2 (13:14→13:55)
[2018-02-09] MEDS: TRANEXAMIC ACID 1,000 MG in IV NS 50ML -- 1ST BAG INJ (14:20)
[2018-02-09] MEDS: TOBRAMYCIN POWDER 1.2 GM VIAL. (14:28)
[2018-02-09] MEDS: MORPHINE SULFATE 5 MG, KETOROLAC 30 MG, ROPIVacaine 0.5% PF 60 ML, EPINEPHrine 0.5 MG i... INT ART (14:28)
[2018-02-09] MEDS: VANCOMYCIN 1 GM VIAL. (14:28)
[2018-02-09] MEDS ORDERED: NEOSTIGMINE METHYLSULFATE 5 MG/5 ML SYRINGE. (14:43)
[2018-02-09] MEDS ORDERED: GLYCOPYRROLATE 1 MG/5 ML VIAL. (14:44)
[2018-02-09] MEDS: TRANEXAMIC ACID 1,000 MG in IV NS 50ML -- 2ND BAG INJ (15:28)
[2018-02-09] MEDS ORDERED: WARFARIN 7.5 MG TABLET. PO (16:00)
[2018-02-09] MEDS: IV DEXTROSE 5 %-0.45 % NACL 1,000 ML IV (16:18)
[2018-02-09 16:20] LABS: POC GLUCOSE 125 mg/dL (70-99)
[2018-02-09] MEDS ORDERED: HYDROcodone/APAP 10/325 1 TAB TABLET PO (16:30)
[2018-02-09] MEDS ORDERED: fentaNYL PF VIAL 100 MCG/2 ML VIAL IV ×2 (16:30)
[2018-02-09] MEDS ORDERED: ACETAMINOPHEN 325 MG TABLET. PO (16:30)
[2018-02-09] MEDS ORDERED: 0.9 % SODIUM CHLORIDE 10 ML DISP.SYRIN. IV (16:30)
[2018-02-09] MEDS ORDERED: oxyCODONE/APAP 7.5/325 1 TAB TABLET PO (16:30)
[2018-02-09] MEDS ORDERED: diphenhydrAMINE 50 MG/ML VIAL IV (16:30)
[2018-02-09] MEDS ORDERED: DEXTROSE 50% 25 GM / 50ML DISP.SYRIN. IV (16:30)
[2018-02-09] MEDS ORDERED: ZOLPIDEM 5 MG TABLET. PO (16:30)
[2018-02-09] MEDS ORDERED: METOCLOPRAMIDE HCL 10 MG/2 ML VIAL. IV (16:30)
[2018-02-09] MEDS ORDERED: MORPHINE SULFATE 10 MG/ML VIAL. IV (16:30)
[2018-02-09] MEDS ORDERED: PROCHLORPERAZINE 5 MG TABLET. PO (16:30)
[2018-02-09] MEDS ORDERED: traMADol 50 MG TABLET PO ×2 (16:30)
[2018-02-09] MEDS ORDERED: PROCHLORPERAZINE 10 MG/2 ML VIAL. IV (16:30)
[2018-02-09] MEDS ORDERED: CALCIUM CARBONATE 500 MG TAB.CHEW PO (16:30)
[2018-02-09] MEDS ORDERED: MORPHINE SULFATE 4 MG/ML DISP.SYRIN. IV ×3 (16:30)
[2018-02-09] MEDS: fentaNYL PF VIAL 100 MCG/2 ML VIAL IV ×2 (16:33→17:13)
[2018-02-09] MEDS: CELECOXIB 200 MG CAPSULE. PO (20:48)
[2018-02-09] MEDS: WARFARIN 7.5 MG TABLET. PO (20:50)
[2018-02-10] MEDS: IV DEXTROSE 5 %-0.45 % NACL 1,000 ML IV ×4 (02:18→21:34)
[2018-02-10] MEDS: VANCOMYCIN 1 GM in IV DEXTROSE 5% 250 ML IV (02:23)
[2018-02-10 05:10] LABS: POC GLUCOSE 113 mg/dL (70-99)
[2018-02-10 06:03] LABS: HEMATOCRIT 27.6 % (36.0-47.0); HEMOGLOBIN 9.2 g/dL (12.0-15.5); MEAN CORPUSCULAR HGB CONC 33 g/dL (31-37)
[2018-02-10 06:05] LABS: INR 1.2 (0.8-1.1); PROTHROMBIN TIME PATIENT 14.7 SEC (11.7-14.0)
[2018-02-10] MEDS: KETOROLAC 30 MG, BUPIVACAINE MPF 0.25% 20 ML, EPINEPHrine 0.5 MG in TOTAL VOLUME SYRING... INT ART (07:27)
[2018-02-10] MEDS: FERROUS SULFATE 325 MG TABLET. PO ×3 (08:40→17:41)
[2018-02-10] MEDS: SENNOSIDES/DOCUSATE 8.6/50MG TABLET. PO (08:40)
[2018-02-10] MEDS: CELECOXIB 200 MG CAPSULE. PO ×2 (08:40→21:45)
[2018-02-10] MEDS: MULTIVITAMIN with MINERAL TABLET. PO (08:40)
[2018-02-10] MEDS: metFORMIN 500 MG TABLET PO (08:40)
[2018-02-10] MEDS: HYDROcodone/APAP 7.5/325MG 1 TAB TABLET PO ×4 (08:42→21:46)
[2018-02-10] MEDS: LOSARTAN POTASSIUM 50 MG TABLET. PO (08:43)
[2018-02-10] MEDS: hydroCHLOROthiazide 25 MG TABLET PO (08:43)
[2018-02-10 12:06] LABS: POC GLUCOSE 94 mg/dL (70-99)
[2018-02-10] MEDS ORDERED: BISACODYL 10 MG SUPP.RECT. PR (16:00)
[2018-02-10] MEDS: WARFARIN 5 MG TABLET. PO (17:42)
[2018-02-10] MEDS: MAGNESIUM HYDROXIDE 2,400 MG/30 ML ORAL.SUSP. PO (21:44)
[2018-02-11 06:11] LABS: HEMATOCRIT 24.2 % (36.0-47.0); MEAN CORPUSCULAR HGB CONC 33 g/dL (31-37)
[2018-02-11 06:12] LABS: INR 1.3 (0.8-1.1); PROTHROMBIN TIME PATIENT 15.2 SEC (11.7-14.0)
[2018-02-11 06:21] LABS: POC GLUCOSE 90 mg/dL (70-99)
[2018-02-11] MEDS: metFORMIN 500 MG TABLET PO (07:57)
[2018-02-11] MEDS: POLYETHYLENE GLYCOL 3350 17 GM PACKET. PO (07:57)
[2018-02-11] MEDS: FERROUS SULFATE 325 MG TABLET. PO (07:57)
[2018-02-11] MEDS: SENNOSIDES/DOCUSATE 8.6/50MG TABLET. PO (07:57)
[2018-02-11] MEDS: CELECOXIB 200 MG CAPSULE. PO ×2 (07:57→20:53)
[2018-02-11] MEDS: MULTIVITAMIN with MINERAL TABLET. PO (07:57)
[2018-02-11] MEDS: LOSARTAN POTASSIUM 50 MG TABLET. PO (09:00)
[2018-02-11] MEDS: HYDROcodone/APAP 7.5/325MG 1 TAB TABLET PO (09:38)
[2018-02-11 11:40] LABS: POC GLUCOSE 88 mg/dL (70-99)
[2018-02-11] MEDS: oxyCODONE/APAP 5/325 1 TAB TABLET PO ×2 (12:51→17:08)
[2018-02-11] MEDS: hydroCHLOROthiazide 25 MG TABLET PO (17:07)
[2018-02-11] MEDS: WARFARIN 7.5 MG TABLET. PO (17:07)
[2018-02-11 20:41] LABS: POC GLUCOSE 108 mg/dL (70-99)
[2018-02-11 20:42] LABS: POC GLUCOSE 121 mg/dL (70-99)
[2018-02-12] MEDS: oxyCODONE/APAP 5/325 1 TAB TABLET PO ×3 (02:54→12:53)
[2018-02-12 05:57] LABS: HEMATOCRIT 26.8 % (36.0-47.0); MEAN CORPUSCULAR HGB CONC 34 g/dL (31-37)
[2018-02-12 06:40] LABS: POC GLUCOSE 106 mg/dL (70-99)
[2018-02-12 06:48] LABS: INR 1.4 (0.8-1.1); PROTHROMBIN TIME PATIENT 16.8 SEC (11.7-14.0)
[2018-02-12] MEDS: metFORMIN 500 MG TABLET PO (08:29)
[2018-02-12] MEDS: SENNOSIDES/DOCUSATE 8.6/50MG TABLET. PO (08:29)
[2018-02-12] MEDS: FERROUS SULFATE 325 MG TABLET. PO (08:29)
[2018-02-12] MEDS: HYDROcodone/APAP 7.5/325MG 1 TAB TABLET PO (08:29)
[2018-02-12] MEDS: POLYETHYLENE GLYCOL 3350 17 GM PACKET. PO (08:29)
[2018-02-12] MEDS: hydroCHLOROthiazide 25 MG TABLET PO (08:30)
[2018-02-12] MEDS: CELECOXIB 200 MG CAPSULE. PO (08:30)
[2018-02-12] MEDS: LOSARTAN POTASSIUM 50 MG TABLET. PO ×2 (08:30→12:54)
[2018-02-12] MEDS: MULTIVITAMIN with MINERAL TABLET. PO (08:30)
[2018-02-12] MEDS: WARFARIN 7.5 MG TABLET. PO (12:52)
[2018-02-12] MEDS ORDERED: WARFARIN 5 MG TABLET. PO (14:00)
[2018-02-16 10:21] LABS: POC GLUCOSE 100 mg/dL (70-99)
== END 2018-02-12 15:15 | disposition home health service (06) | DRG 470 ==
LOC: OPSVCIP 09:48 → 4 SOUTHEST 17:45
PROVIDERS: Orthopaedic Surgery
PROC: 0SRC0J9 Replacement of Right Knee Joint with Synthetic Substitute, Cemented, Open Approach (ICD-10-PCS; principal; 2018-02-09 13:15)
DX: M17.11 Unilateral primary osteoarthritis, right knee (principal); E11.9 Type 2 diabetes mellitus without complications; I10 Essential (primary) hypertension; Z88.6 Allergy status to analgesic agent; Z88.8 Allergy status to other drugs, medicaments and biological substances
CPT/HCPCS: 36415; 73560; 82962; 85014; 85018; 85610; 85730; 86850; 86900; 86901; 97116-GP; 97150-GP; 97162-GP; 97166-GO; 97530-GP; 97535-GO; A7015; C1713; J0171; J0690; J1100; J1885; J2270; J2405; J2704; J2710; J2795; J3010; J3260; J3370; J3490; J7030; J7120

== ENCOUNTER → 2018-02-22 | Outpatient (CLI) | payer MEDICARE ==
[2018-02-22 17:01] LABS: PROTHROMBIN TIME PATIENT 22.1 SEC (11.7-14.0)
== END | disposition home or self-care (01) ==
LOC: LAB 16:27
DX: Z47.1 Aftercare following joint replacement surgery (principal); Z96.651 Presence of right artificial knee joint
CPT/HCPCS: 36415; 85610